=== PATIENT | female | born 1955 | race Two or more races ===

== ENCOUNTER 2017-10-15 08:21 | Day surgery (SDC) | payer SELFPAY ==
[2017-10-09 10:24] VITALS: BMI 18.0
[~2017-10-15 08:21] MED LIST: Bupivacaine HCl 0.25% PF (10 ml) Inj ONE; HEPARIN-NS 5,000 UNITS/500 ML 5,000 UNIT/500 ML BAG IV ONE; Lidocaine/Epinephrine 1% 1:100000 10 ML IJ ONE; Sodium Chloride 0.9% 20 ML IV ONE
[2017-10-15] MEDS ORDERED: Propofol 10 mg/ml Inj (20 ML) ONE (09:37)
[2017-10-15] MEDS ORDERED: Midazolam 2 MG/2 ML VIAL ONE (09:37)
[2017-10-15] MEDS ORDERED: ceFAZolin IV 1 gm in Dextrose 0 GM/0 ML BAG IVPB ONE (09:39)
[2017-10-15] MEDS ORDERED: ceFAZolin IV 2 gm in Dextrose 2 GM/50 ML BAG IVPB ONE (09:40)
--- NOTE | 2017-10-15 10:56 | PCM.SURG1 ---
Surgeon's Initial Post Op Note - Surgeon's Notes Surgeon: Toby Mock MD Sea Air Land Officer: SUSANA Pinzon Type of Anesthesia: General LMA Pre-Operative Diagnosis: B/L Breast cancer with Axillary LNPathy Operative Findings: B/L Breast cancer with Axillary LNPathy Post-Operative Diagnosis: B/L Breast cancer with Axillary LNPathy Operation Performed: R IJ Portacath Insertion. US guided venous access. IntraOp flouroscopy Specimen/Specimens Removed: none Estimated Blood Loss: EBL {In ML}: 10 Blood Products Given: N/A Drains Used: No Drains Post-Op Condition: Good Date of Surgery/Procedure: 10/15/17 Time of Surgery/Procedure: 10:56
[2017-10-15 11:23] VITALS: O2SAT 100
--- NOTE | 2017-10-15 11:28 | RAD ---
HISTORY: S/P Portacath insertion COMPARISON: CT chest from 09/27/2017 FINDINGS: The right Port-A-Cath terminates at the cavoatrial junction. LUNGS: The lungs are hyperinflated and there is peribronchial thickening with chronic changes in both lungs. There is biapical pleural thickening and fibrotic changes in the upper lobes. PLEURA: No significant pleural effusion identified, no pneumothorax apparent. CARDIOVASCULAR: Normal. OSSEOUS STRUCTURES: No significant abnormalities. VISUALIZED UPPER ABDOMEN: Normal. OTHER FINDINGS: There are biopsy clip markers overlying both breasts and axilla. IMPRESSION: Right Port-A-Cath terminates at the cavoatrial junction. COPD.
[2017-10-15 13:08] VITALS: PULSE 89; RESP 16
[2017-10-15 13:12] VITALS: BP 108/51; TEMP 97.2
--- NOTE | 2017-10-15 16:34 | RAD ---
PROCEDURE: Intraoperative Fluoroscopy. HISTORY: BREAST CA Findings Fluoroscopic assistance was provided. 11.3 seconds fluoroscopy time utilized during this procedure. Radiation dose = 0.74996 mGy. Please refer to the operative report from DEVIN Brunner.
--- NOTE | 2017-10-16 09:02 | OP ---
DATE: 10/15/2017 PREOPERATIVE DIAGNOSIS: Bilateral breast cancer with axillary lymphadenopathy. POSTOPERATIVE DIAGNOSIS: Bilateral breast cancer with axillary lymphadenopathy. PROCEDURES: 1. "Right IJ" Port-A-Cath insertion. 2. Ultrasound-guided venous access. 3. Intraoperative fluoroscopy. SURGEON: Parag Mock MD PHARMACY INFORMATICIST: ISIAH Pinzon TYPE OF ANESTHESIA: General anesthesia with LMA. ESTIMATED BLOOD LOSS: Around 10 mL. DRAINS: None. PATHOLOGY: None. COMPLICATIONS: None. INTRAOPERATIVE FINDINGS: The patient had a patent right IJ. DESCRIPTION OF PROCEDURE: On intraoperative steps, this 62-year-old female was diagnosed with a bilateral breast cancer and the patient was consented for the Port-A-Cath insertion, brought to the OR, placed supine on the operating table. After induction of the anesthesia, the neck and upper chest was prepped and draped under ultrasound guidance. Right IJ venous access was done, guidewire was placed. Fluoroscopic confirmation was done. Right infraclavicular incision was made. Pouch was created. The catheter was tunneled from the pouch up to the right IJ insertion site. The right IJ insertion site was dilated and the catheter was placed into the dilator sheath. Intraoperative fluoroscopic confirmation was done. Now the catheter was connected to the port and port was secured to the floor of the pouch and the port was accessed intraoperatively and it was functioning without any blockage. There was a good return of blood and now the wound was closed in two layers, subcutaneously with a 2-0 Vicryl, skin with 4-0 Monocryl, and the right IJ incision site was also closed with the 4-0 Monocryl and dry sterile dressing was applied. The patient tolerated the procedure well. Count of the instrument and gauze was correct. There was no apparent complication. The patient was reversed from anesthesia in the OR and sent to the Postanesthesia Care Unit in stable condition. Postoperative chest x-ray was ordered. Parag Mock MD
== END 2017-10-15 12:59 | disposition home or self-care (01) ==
LOC: C.SDS 08:21
PROVIDERS: ATTEND Surgery Surgical Critical Care
DX: C50.912 Malignant neoplasm of unspecified site of left female breast (principal); C50.911 Malignant neoplasm of unspecified site of right female breast; Z80.3 Family history of malignant neoplasm of breast; F17.210 Nicotine dependence, cigarettes, uncomplicated; J44.9 Chronic obstructive pulmonary disease, unspecified; Z45.2 Encounter for adjustment and management of vascular access device
CPT/HCPCS: 36561; 71045; 76937; 77001; J0690; J1644; J2250; J2270; J2704; J3010

== ENCOUNTER 2018-06-23 07:10 | Inpatient (IN) | payer SELFPAY, MEDICAID ==
[2018-06-17 12:28] VITALS: BMI 18.0
[2018-06-23] MEDS ORDERED: ceFAZolin 1 gm FROZEN Premix 1 GM/50 ML ML IVPB ONE (09:03)
--- NOTE | 2018-06-23 12:11 | PCM.SURG1 ---
Surgeon's Initial Post Op Note - Surgeon's Notes Surgeon: Dr Strong Horticultural Farmworker: Dr Ballard PGY4 Type of Anesthesia: General Endo Pre-Operative Diagnosis: invasive ductal carcinoma Operative Findings: see dictation Post-Operative Diagnosis: as above Operation Performed: bilateral mastectomy w/ right axillary node dissection Specimen/Specimens Removed: right breast. right axillary nodes. left breast Estimated Blood Loss: EBL {In ML}: 150 Blood Products Given: N/A Drains Used: Prem Cabrera (x 2 ) Post-Op Condition: Good Date of Surgery/Procedure: 06/23/18 Time of Surgery/Procedure: 12:11
[2018-06-23] MEDS: HYDROmorphone 0.5 mg/0.5 ml ISec IVP PRN ×2 (12:15→13:00)
[2018-06-23 14:34] VITALS: RESP 20
[2018-06-23] MEDS: Dextrose 5%/0.45% NS 1,000 ML IV SCH (14:53)
[2018-06-23] MEDS: Oxycodone/Acetaminophen 5/325 mg Tab PO PRN ×2 (16:00→21:20)
[2018-06-24] MEDS: Dextrose 5%/0.45% NS 1,000 ML IV SCH (08:00)
[2018-06-24 08:30] LABS: BASO % 0.2 % (0.0-2.0); EOS % 0.3 % (0.0-4.0); HEMOGLOBIN 10.7 g/dL (11.0-16.0); LYMPH # 1.3 K/uL (1.0-4.3); LYMPH % 14.9 % (20.0-40.0); MEAN CELL VOLUME 89.2 fL (81.0-99.0); MEAN CORPUSCULAR HEMOGLOBIN 30.3 pg (27.0-31.0); MEAN CORPUSCULAR HGB CONC 33.9 g/dL (33.0-37.0); MEAN PLATELET VOLUME 7.6 fL (7.2-11.7); MONO # 0.7 K/uL (0.0-0.8); MONO % 7.9 % (0.0-10.0); NEUT # 6.4 K/uL (1.8-7.0); NEUT % 76.7 % (50.0-75.0); RBC 3.52 Mil/uL (3.80-5.20); RED CELL DISTRIBUTION WIDTH 16.9 % (11.5-14.5); WHITE BLOOD COUNT 8.4 K/uL (4.8-10.8)
[2018-06-24 08:39] LABS: BLOOD UREA NITROGEN 10 mg/dL (7-17); CALCIUM 8.8 mg/dl (8.6-10.4); GFR NON-AFRICAN AMERICAN > 60
[2018-06-24 08:52] VITALS: BP 117/62; PULSE 76; TEMP 98.6; O2SAT 98
--- NOTE | 2018-06-29 10:02 | OP ---
PROCEDURE DATE: 06/23/2018 SURGERY: Bilateral total simple mastectomy with right axillary lymph node dissection. INDICATION: Ductal carcinoma. PREOPERATIVE DIAGNOSIS: Ductal carcinoma, invasive cancer. POSTOPERATIVE DIAGNOSIS: Ductal carcinoma, invasive cancer. PROCEDURE: Bilateral total simple mastectomy. SURGEON: Brian Strong MD DESCRIPTION OF PROCEDURE: This is a 62-year-old female who developed the breast lump and abnormal skin changes in the right breast that on biopsy was found to be invasive ductal cancer. The patient was brought to the operating room, general anesthesia was induced. Time-out was performed using both preinduction and preincision safety checklist to verify correct patient, procedure site, and additional critical information prior to the beginning of the procedure. The breasts, chest wall, axilla, upper arm, and neck were then prepped and draped in the usual sterile fashion. Starting with the right breast, a transverse elliptical incision was made that encompassed nipple areolar complex and the previous biopsy scar and the skin over where the tumor was presumed to be. Flaps were raised up in the avascular plain between the subcutaneous tissue and the breast tissue from the clavicle superiorly, the sternum medially, the anterior rectus sheath inferiorly, and the anterior border of the latissimus dorsi muscle laterally. Hemostasis was achieved in the flaps. Next, the breast tissue was excised from the pectoralis major muscle, attempting to preserve the pectoralis fascia. At the lateral border of the pectoralis major muscle, the breast tissue was swung laterally and a lateral pedicle was identified where a breast tissue gave way to the fat of the axilla. The lateral pedicle was then incised and the specimen was removed and oriented. At this point, we noted that there was some palpable lymph nodes within the axilla, so the incision was extended slightly. These lymph nodes were then excised and sent off with pathology as well. The wound was then irrigated and hemostasis was achieved. At this point, our attention was directed towards the left breast in which the same procedure was carried out, so again a transverse elliptical incision was made that encompassed the nipple areolar complex with previous biopsy scar and skin over the tumor. Again raising flaps in the avascular plain between the subcutaneous tissue and the breast tissue from the clavicle superiorly, the sternum medially, the anterior rectus sheath inferiorly and the anterior border of the latissimus dorsi muscle laterally. Hemostasis was achieved in the flaps and the breast tissue was excised from the pectoralis major muscle preserving the pectoralis fascia. Again, at the lateral border of the pectoralis major muscle, the breast tissue was swung laterally and the lateral pedicle was identified. The breast tissue gave away from the side of the axilla. This pedicle was then incised and specimen was removed and again oriented. On the left side, there was no palpable lymphadenopathy and no lymph nodes that could be taken for specimen. So at this point, closed suction drain was placed bilaterally. 19-[place] BURAK drains, which were placed with a separate stab incision inferiorly and laterally to the skin, I made an incision to the skin using 3-0 silk. The wound was then closed using interrupted 3-0 Vicryl to the subcutaneous layer, followed by ilya. The wound was then dressed. Debriefing checklist was completed to share the information critical and postoperative care of the patient. The patient tolerated the procedure well , was extubated and taken to post anesthesia care unit in stable condition. Approximate EBL was 20 mL. Shelton Ballard DO Brian Strong MD
== END 2018-06-24 13:07 | disposition home or self-care (01) | DRG 362 ==
LOC: C.9S 07:10 → C.6T 14:01
PROVIDERS: ADMIT Specialist; ATTEND Specialist
PROC: 07B50ZX Excision of Right Axillary Lymphatic, Open Approach, Diagnostic (ICD-10-PCS; 2018-06-23)
PROC: 0HTV0ZZ Resection of Bilateral Breast, Open Approach (ICD-10-PCS; principal; 2018-06-23 09:00)
DX: C50.011 Malignant neoplasm of nipple and areola, right female breast (principal); C77.3 Secondary and unspecified malignant neoplasm of axilla and upper limb lymph nodes